=== PATIENT | male | born 1950 | race Hispanic/Latino ===

== ENCOUNTER 2019-09-01 18:44 | Emergency (ER) | payer OTHER ==
[~2019-09-01] VITALS: Ht 170.2 cm; Wt 77.1 kg
[2019-09-01 19:11] LABS: PLATELET COUNT 307 K/uL (142-355)
[2019-09-01 19:26] LABS: POTASSIUM 3.8 mmol/L (3.6-5.2); SODIUM 141 mmol/L (136-145)
[2019-09-01 19:31] LABS: PARTIAL THROMBOPLASTIN TIME 24.6 SECONDS (24.5-33.6)
[2019-09-01 20:10] VITALS: BP 152/85; TEMP 98.1
== END 2019-09-01 20:10 | disposition short-term general hospital (02) ==
LOC: ED 18:44
PROVIDERS: Emergency Medicine Emergency Medical Services
DX: I61.2 Nontraumatic intracerebral hemorrhage in hemisphere, unspecified (principal); R93.0 Abnormal findings on diagnostic imaging of skull and head, not elsewhere classified; R20.2 Paresthesia of skin; I48.92 Unspecified atrial flutter
CPT/HCPCS: 36415; 80053; 82553; 84484; 85027; 85610; 85730; 93005; 99285

== ENCOUNTER 2020-08-11 09:25 | Outpatient (CLI) | payer OTHER ==
[2020-08-11 09:54] LABS: PLATELET COUNT 283 K/uL (142-355)
[2020-08-11 10:10] LABS: POTASSIUM 4.7 mmol/L (3.6-5.2)
== END 2020-08-11 21:47 | disposition home or self-care (01) ==
LOC: LABW 09:25
PROVIDERS: Family Medicine
DX: Z86.73 Personal history of transient ischemic attack (TIA), and cerebral infarction without residual deficits (principal); I10 Essential (primary) hypertension; E03.8 Other specified hypothyroidism; Z12.5 Encounter for screening for malignant neoplasm of prostate; Z79.899 Other long term (current) drug therapy
CPT/HCPCS: 80053; 80061; 81000; 82306; 82607; 83036; 84153; 84443; 85027